=== PATIENT | male | born 1985 | race Caucasian/White ===

== ENCOUNTER 2019-10-22 19:15 | Emergency (ER) | payer OTHER ==
[~2019-10-22] VITALS: Wt 77.1 kg
[2019-10-22] MEDS ORDERED: AUGMENTIN 875875 MG PO (19:37)
[2019-10-22] MEDS ORDERED: SEPTDS PO (19:42)
[2019-10-22] MEDS ORDERED: NORCO 5-325 TA1 EACH PO (19:42)
== END 2019-10-22 20:04 | disposition home or self-care (01) ==
LOC: ED 19:15
DX: L02.31 Cutaneous abscess of buttock (principal); F17.200 Nicotine dependence, unspecified, uncomplicated; Z79.899 Other long term (current) drug therapy

== ENCOUNTER 2022-04-11 20:06 | Emergency (ER) | payer OTHER ==
[~2022-04-11] VITALS: Ht 170.1 cm; Wt 77.1 kg
[~2022-04-11 20:06] MED LIST: AUGMENTIN 875875 MG PO; NORCO 5-325 TA1 EACH PO; SEPTDS PO
[2022-04-11 21:46] LABS: BILIRUBIN Negative (Negative); BLOOD Negative (Negative); CLARITY Clear (Clear); COLOR Yellow (Yellow); GLUCOSE Negative (Negative); KETONE Negative (Negative); LEUKO ESTERASE Trace (Negative); NITRITE Negative (Negative)
[2022-04-11 22:08] LABS: BACTERIA 1+
[2022-04-11] MEDS ORDERED: METRONIDAZOLE500 M1 PO (22:41)
== END 2022-04-11 23:03 | disposition home or self-care (01) ==
LOC: ED 20:06
PROVIDERS: Nurse Practitioner Family
DX: Z20.2 Contact with and (suspected) exposure to infections with a predominantly sexual mode of transmission (principal); N48.89 Other specified disorders of penis

== ENCOUNTER 2024-07-25 15:03 | Emergency (ER) | payer OTHER ==
[~2024-07-25] VITALS: Ht 167.6 cm; Wt 77.1 kg
[~2024-07-25 15:03] MED LIST changes: +METRONIDAZOLE500 M1 PO
[2024-07-25] MEDS ORDERED: VIBRAMYCIN100 MG PO (16:22)
[2024-07-25] MEDS ORDERED: Doxycycline Hyclate 100 MG CAP PO ONE (16:25)
== END 2024-07-25 16:16 | disposition home or self-care (01) ==
LOC: ED 15:03
DX: N49.2 Inflammatory disorders of scrotum (principal); J45.909 Unspecified asthma, uncomplicated; G43.909 Migraine, unspecified, not intractable, without status migrainosus